=== PATIENT | male | born 1960 | race Caucasian/White ===

== ENCOUNTER 2021-08-24 13:51 | Emergency (ER) | payer OTHER ==
[2021-08-24] MEDS ORDERED: methylPREDNISolone Sodium Succinate 125 MG/2 ML SDV IM ONE (14:27)
== END 2021-08-24 15:00 | disposition home or self-care (01) ==
LOC: JP.ED 13:51
DX: L23.7 Allergic contact dermatitis due to plants, except food (principal); Z88.5 Allergy status to narcotic agent; Z88.2 Allergy status to sulfonamides
CPT/HCPCS: 96372; 99282; J2930

== ENCOUNTER 2021-08-31 10:33 | Emergency (ER) | payer OTHER | END 2021-08-31 12:15 | disposition home or self-care (01) | LOC: JP.ED 10:33 | DX: J30.2 Other seasonal allergic rhinitis (principal); Z88.5 Allergy status to narcotic agent; Z88.2 Allergy status to sulfonamides; Z79.899 Other long term (current) drug therapy; Z20.822 Contact with and (suspected) exposure to COVID-19 | CPT/HCPCS: 99281; 99283; U0002 ==